=== PATIENT | male | born 1950 | race Caucasian/White ===

== ENCOUNTER 2017-05-06 15:05 | Emergency (ER) | payer OTHER ==
[~2017-05-06] VITALS: Ht 182.9 cm; Wt 68.0 kg
--- NOTE | ~2017-05-06 | EKG ---
[place] [address] [facility] [place] [address] ELECTROCARDIOGRAM REPORT Name: SHAI CHRIS ABI Room #: [facility]P [id number] Admission: 05/06/17 Attend Phys: Discharge: 05/06/17 Date of : 50 Report #: [id number] THIS REPORT FOR: //name// [facility] ED Test Date: 2017-05-06 Test Time: 16:37:20 Pat Name: SHAI CHRIS Department: Room: 170 Gender: M [employer]: aura : 1950 Requested By: Lyssa Nguyễn Order Number: [id number] MD: Shivam Kirk Measurements Intervals [place] Rate: 82 P: 69 FL: 221 QRS: -55 QRSD: 176 T: 113 QT: 468 QTc: 547 Interpretive Statements Sinus rhythm Ventricular premature complex Prolonged [place] interval Right bundle branch block LVH with IVCD and secondary repol abnrm Prolonged QT interval No previous ECG available for comparison Electronically Signed On 05-06-2017 22:26:22 [employer]ILDING [employer] by Shivam Kirk [email or web address] <ELECTRONICALLY SIGNED> By: Shivam Kirk MD 05/06/17 [id number] 36 Shivam Kirk MD /AGUS
[2017-05-06 15:10] VITALS: BP 75/53
[2017-05-06] MEDS ORDERED: METOPROLOL SUCC50 MG PO (15:39)
[2017-05-06] MEDS ORDERED: DEMADEX20 MG PO (15:40)
[2017-05-06] MEDS ORDERED: K-DUR 20 MEQ T20 MEQ PO (15:40)
[2017-05-06 15:59] LABS: ABSOLUTE NEUTROPHILS 2.9 thou/uL (1.4-8.2); BASOPHILS 0.5 % (0.0-2.0); EOSINOPHILS 0.8 % (0.0-3.0); HEMOGLOBIN 6.5 gm/dL (14.0-18.0); LYMPHOCYTES 11.8 % (24.0-44.0); MCH 29.5 pg (26.0-34.0); MCHC 33.3 g/dL (28.0-37.0); MCV 88.6 fL (80.0-100.0); MONOCYTES 2.8 % (1.0-8.0); PLATELET COUNT 181 thou/uL (150-400); POLYS 84.1 % (36.0-66.0); RBC 2.19 mil/uL (4.50-6.00); RDW 18.4 % (10.5-14.5); WBC 3.5 thou/uL (4.0-11.0)
[2017-05-06 16:06] LABS: ALBUMIN 1.2 g/dL (3.4-5.0); ANION GAP 12 mmol/L (7-16); BUN 50 mg/dL (7-18); CHLORIDE 112 mmol/L (98-107); CO2 19 mmol/L (21-32); CREATININE 1.2 mg/dL (0.7-1.3); SGOT 95 U/L (15-37); SGPT 36 U/L (30-65); SODIUM 143 mmol/L (136-145); TOTAL BILIRUBIN 1.1 mg/dL (<0.1-1.0); TOTAL PROTEIN 3.5 g/dL (6.4-8.2)
[2017-05-06 16:08] LABS: HEMATOCRIT 19.4 % (42.0-52.0)
[2017-05-06 16:09] LABS: POTASSIUM 1.5 mmol/L (3.5-5.1)
[2017-05-06 16:10] LABS: GLUCOSE 38 mg/dL (74-106)
[2017-05-06 16:11] LABS: CALCIUM < 5.0 mg/dL (8.5-10.1)
[2017-05-06 18:13] LABS: APTT 42.8 Seconds (24.5-32.8); INR 1.7; PROTIME 17.6 Seconds (9.3-11.4)
[2017-05-06 19:26] VITALS: BP 89/62
== END 2017-05-06 19:32 | disposition short-term general hospital (02) ==
LOC: ER 15:05 → EROBS 16:13 → ER 19:32
PROVIDERS: Emergency Medicine
DX: A41.9 Sepsis, unspecified organism (principal); R65.21 Severe sepsis with septic shock; D64.9 Anemia, unspecified; L03.90 Cellulitis, unspecified; R62.7 Adult failure to thrive; E83.51 Hypocalcemia; E87.6 Hypokalemia; I10 Essential (primary) hypertension